=== PATIENT | male | born 1960 | race Caucasian/White ===

== ENCOUNTER 2021-02-04 06:03 | Day surgery (SDC) | payer BC ==
[2021-01-26 11:11] VITALS: BMI 20.9
[2021-02-04] MEDS ORDERED: ROPIVACAINE HCL 0.5% 30ML VIAL ONE (06:53)
[2021-02-04] MEDS ORDERED: MIDAZOLAM HCL 2 MG/2 ML SINGLE DOSE VIAL ONE (06:53)
[2021-02-04] MEDS ORDERED: PROPOFOL 20 ML ONE ×2 (07:27)
[2021-02-04] MEDS ORDERED: DEXAMETHASONE SOD PHOSPHATE 10 MG/1 ML VIAL ONE (07:41)
[2021-02-04] MEDS ORDERED: BUPIVACAINE HCL/PF 0.25% (2.5MG/ML) 10 ML VIAL ONE (07:46)
[2021-02-04] MEDS ORDERED: LIDOCAINE HCL 2% (20ML MULTI-DOSE VIAL) ONE (07:46)
[2021-02-04] MEDS ORDERED: ceFAZolin SODIUM 1 GM VIAL ONE (08:16)
[2021-02-04] MEDS ORDERED: DEXAMETHASONE SOD PHOSPHATE 4 MG/1 ML VIAL ONE (08:18)
[2021-02-04] MEDS ORDERED: ONDANSETRON 4 MG/2 ML VIAL ONE (08:18)
[2021-02-04] MEDS ORDERED: SUCCINYLCHOLINE CHLORIDE 200 MG/10 ML SYRINGE ONE (08:31)
[2021-02-04] MEDS ORDERED: LABETALOL HCL 5 MG/1 ML (100MG/20 ML VIAL) ONE (08:44)
[2021-02-04 10:26] VITALS: TEMP 97.8
[2021-02-04] MEDS ORDERED: ACETAMINOPHEN 325 MG TABLET (FP) ONE (11:04)
[2021-02-04 11:15] VITALS: BP 106/64; PULSE 48
[2021-02-04] MEDS ORDERED: ACETAMINOPHEN 325 MG TABLET (FP) PO ONE (13:29)
== END 2021-02-04 13:12 | disposition home or self-care (01) ==
LOC: FASU 06:03
PROVIDERS: ATTEND Orthopaedic Surgery
PROC: 0LQ20ZZ Repair Left Shoulder Tendon, Open Approach (ICD-10-PCS; principal; 2021-02-04 08:32)
PROC: 0PBB4ZZ Excision of Left Clavicle, Percutaneous Endoscopic Approach (ICD-10-PCS; 2021-02-04 08:32)
PROC: 0RNK4ZZ Release Left Shoulder Joint, Percutaneous Endoscopic Approach (ICD-10-PCS; 2021-02-04 08:32)
DX: M75.122 Complete rotator cuff tear or rupture of left shoulder, not specified as traumatic (principal)
CPT/HCPCS: J1100

== ENCOUNTER 2021-04-01 06:46 | Day surgery (SDC) | payer BC ==
[2021-03-25 12:12] VITALS: BMI 19.9
[2021-04-01] MEDS ORDERED: MIDAZOLAM HCL 2 MG/2 ML SINGLE DOSE VIAL ONE (08:20)
[2021-04-01] MEDS ORDERED: ROPIVACAINE HCL 0.5% 30ML VIAL ONE (08:20)
[2021-04-01] MEDS ORDERED: ceFAZolin SODIUM 1 GM VIAL IVPB ONE (09:28)
[2021-04-01] MEDS ORDERED: oxyCODONE HCL 5 MG TABLET PO PRN (10:59)
[2021-04-01] MEDS ORDERED: PROMETHAZINE HCL 25 MG/1 ML VIAL IVPUSH PRN (10:59)
[2021-04-01] MEDS ORDERED: ONDANSETRON 4 MG/2 ML VIAL IVPUSH PRN (10:59)
[2021-04-01] MEDS ORDERED: LACTATED RINGERS SOLUTION 1,000 ML IV SCH (11:00)
[2021-04-01 11:30] VITALS: TEMP 98
[2021-04-01 13:57] VITALS: BP 118/70; PULSE 74
== END 2021-04-01 14:26 | disposition home or self-care (01) ==
LOC: FASU 06:46
PROVIDERS: ATTEND Orthopaedic Surgery
PROC: 0PB94ZZ Excision of Right Clavicle, Percutaneous Endoscopic Approach (ICD-10-PCS; principal; 2021-04-01 09:00)
PROC: 0RNJ4ZZ Release Right Shoulder Joint, Percutaneous Endoscopic Approach (ICD-10-PCS; 2021-04-01 09:00)
DX: M75.41 Impingement syndrome of right shoulder (principal)
CPT/HCPCS: 94760